=== PATIENT | male | born 1980 | race African-American/Black ===

== ENCOUNTER 2018-08-11 10:56 | Emergency (ER) | payer MEDICAID ==
[~2018-08-11] VITALS: Ht 188 cm; Wt 100.0 kg
[2018-08-11 10:59] VITALS: BP 135/83
== END 2018-08-11 12:23 | disposition home or self-care (01) ==
LOC: ER 10:57
DX: M79.671 Pain in right foot (principal); M79.672 Pain in left foot; Z59.0 Homelessness
CPT/HCPCS: 99283

== ENCOUNTER 2018-08-31 05:14 | Emergency (ER) | payer MEDICAID, OTHER ==
[~2018-08-31] VITALS: Ht 177.8 cm; Wt 84.1 kg
[2018-08-31 05:16] VITALS: BP 134/80
[2018-08-31] MEDS ORDERED: acetaminophen 325mg tablet PO ONE (05:25)
== END 2018-08-31 05:37 | disposition home or self-care (01) ==
LOC: ER 05:15
DX: S86.211A Strain of muscle(s) and tendon(s) of anterior muscle group at lower leg level, right leg, initial encounter (principal); X58.XXXA Exposure to other specified factors, initial encounter; Y93.89 Activity, other specified; Y92.89 Other specified places as the place of occurrence of the external cause; Y99.8 Other external cause status
CPT/HCPCS: 99282

== ENCOUNTER 2019-05-11 04:47 | Emergency (ER) | payer SELFPAY ==
[~2019-05-11] VITALS: Ht 177.8 cm; Wt 93.2 kg
[2019-05-11] MEDS ORDERED: LIDOcaine 1% w/EPI 1:200,000 injection 10mL vial IM ONE (06:15)
[2019-05-11] MEDS ORDERED: LIDOcaine 1% W/epiNEPHrine 1:100,000 20ml vial IJ ONE (06:20)
[2019-05-11 06:36] VITALS: BP 110/70
== END 2019-05-11 06:39 | disposition home or self-care (01) ==
LOC: ER 04:48
DX: M25.572 Pain in left ankle and joints of left foot (principal); Z59.0 Homelessness
CPT/HCPCS: 99282

== ENCOUNTER 2020-04-25 10:19 | Emergency (ER) | payer MEDICAID ==
[~2020-04-25] VITALS: Ht 177.8 cm; Wt 100.0 kg
[2020-04-25 10:50] VITALS: BP 106/68
== END 2020-04-25 11:07 | disposition home or self-care (01) ==
LOC: ER 10:19
DX: F15.10 Other stimulant abuse, uncomplicated (principal); F12.90 Cannabis use, unspecified, uncomplicated; Z59.0 Homelessness
CPT/HCPCS: 99281

== ENCOUNTER → 2020-05-16 | Emergency (ER) | payer MEDICAID ==
[~2020-05-16] VITALS: Ht 177.8 cm; Wt 95.4 kg
[~2020-05-16] MED LIST: acetaminophen 325mg tablet PO ONE
[2020-05-16 03:12] VITALS: BP 132/72
== END | disposition home or self-care (01) ==
LOC: ER 03:09
DX: F15.10 Other stimulant abuse, uncomplicated (principal); G47.00 Insomnia, unspecified; F12.90 Cannabis use, unspecified, uncomplicated; Z72.89 Other problems related to lifestyle; Z59.0 Homelessness
CPT/HCPCS: 99282

== ENCOUNTER 2020-05-25 00:08 | Emergency (ER) | payer MEDICAID ==
[~2020-05-25] VITALS: Ht 177.8 cm; Wt 97.7 kg
[2020-05-25 00:14] VITALS: BP 114/80
[2020-05-25] MEDS ORDERED: acetaminophen 325mg tablet PO ONE (01:25)
[2020-05-25] MEDS ORDERED: ibuprofen tablet 400 MG TABLET PO ONE (01:25)
[2020-05-25] MEDS ORDERED: metoclopramide 10mg tablet PO ONE (01:25)
== END 2020-05-25 02:03 | disposition home or self-care (01) ==
LOC: ER 00:08
DX: R51 Headache (principal); F12.90 Cannabis use, unspecified, uncomplicated; F15.90 Other stimulant use, unspecified, uncomplicated; Z72.89 Other problems related to lifestyle; Z59.0 Homelessness
CPT/HCPCS: 99284; J8597

== ENCOUNTER 2020-09-01 03:48 | Emergency (ER) | payer MEDICAID ==
[~2020-09-01] VITALS: Ht 177.8 cm; Wt 84.1 kg
[2020-09-01 03:52] VITALS: BP 136/92
[2020-09-01] MEDS ORDERED: ibuprofen tablet 400 MG TABLET PO ONE (04:05)
[2020-09-01] MEDS ORDERED: acetaminophen 325mg tablet PO ONE (04:05)
== END 2020-09-01 04:36 | disposition home or self-care (01) ==
LOC: ER 03:49
DX: S93.402A Sprain of unspecified ligament of left ankle, initial encounter (principal); M25.572 Pain in left ankle and joints of left foot; F15.10 Other stimulant abuse, uncomplicated; F12.90 Cannabis use, unspecified, uncomplicated; Z59.0 Homelessness; Z72.89 Other problems related to lifestyle; X58.XXXA Exposure to other specified factors, initial encounter; Y93.89 Activity, other specified; Y92.89 Other specified places as the place of occurrence of the external cause; Y99.8 Other external cause status
CPT/HCPCS: 29515; 73610; 73630; 99284

== ENCOUNTER → 2020-09-02 | Emergency (ER) | payer MEDICAID ==
[~2020-09-02] VITALS: Ht 177.8 cm; Wt 100.0 kg
[2020-09-02 03:20] VITALS: BP 118/59
== END | disposition home or self-care (01) ==
LOC: ER 03:19
DX: S93.402A Sprain of unspecified ligament of left ankle, initial encounter (principal); M25.572 Pain in left ankle and joints of left foot; F12.90 Cannabis use, unspecified, uncomplicated; F15.90 Other stimulant use, unspecified, uncomplicated; Z59.0 Homelessness; Z72.89 Other problems related to lifestyle; X58.XXXA Exposure to other specified factors, initial encounter; Y93.89 Activity, other specified; Y92.89 Other specified places as the place of occurrence of the external cause; Y99.8 Other external cause status
CPT/HCPCS: 99283

== ENCOUNTER 2020-09-03 03:02 | Emergency (ER) | payer MEDICAID ==
[~2020-09-03] VITALS: Ht 177.8 cm; Wt 96.4 kg
[2020-09-03 03:07] VITALS: BP 125/73
== END 2020-09-03 03:26 | disposition home or self-care (01) ==
LOC: ER 03:03
DX: M25.572 Pain in left ankle and joints of left foot (principal); F12.90 Cannabis use, unspecified, uncomplicated; F15.90 Other stimulant use, unspecified, uncomplicated; Z59.0 Homelessness; Z60.9 Problem related to social environment, unspecified; Z72.89 Other problems related to lifestyle
CPT/HCPCS: 99281

== ENCOUNTER 2020-09-07 05:22 | Emergency (ER) | payer MEDICAID ==
[~2020-09-07] VITALS: Ht 177.8 cm; Wt 100.0 kg
[2020-09-07 05:23] VITALS: BP 153/106
[2020-09-07] MEDS: diphenhydrAMINE 25mg capsule PO ONE (06:05)
== END 2020-09-07 06:08 | disposition home or self-care (01) ==
LOC: ER 05:23
DX: Z00.00 Encounter for general adult medical examination without abnormal findings (principal); R00.0 Tachycardia, unspecified; F41.9 Anxiety disorder, unspecified; F12.90 Cannabis use, unspecified, uncomplicated; F15.90 Other stimulant use, unspecified, uncomplicated; Z72.89 Other problems related to lifestyle; Z59.0 Homelessness; Z60.9 Problem related to social environment, unspecified
CPT/HCPCS: 99284; Q0163

== ENCOUNTER 2020-10-11 03:06 | Emergency (ER) | payer MEDICAID | END 2020-10-11 03:54 | disposition left against medical advice (07) | LOC: ER 03:06 | DX: M79.673 Pain in unspecified foot (principal); Z53.21 Procedure and treatment not carried out due to patient leaving prior to being seen by health care provider ==

== ENCOUNTER 2020-11-09 05:11 | Emergency (ER) | payer MEDICAID ==
[~2020-11-09] VITALS: Ht 177.8 cm; Wt 86.4 kg
[2020-11-09 05:12] VITALS: BP 125/58
== END 2020-11-09 06:11 | disposition home or self-care (01) ==
LOC: ER 05:12
DX: F15.90 Other stimulant use, unspecified, uncomplicated (principal); F12.90 Cannabis use, unspecified, uncomplicated; Z72.89 Other problems related to lifestyle; Z60.2 Problems related to living alone; Z59.0 Homelessness
CPT/HCPCS: 99283

== ENCOUNTER 2020-11-19 01:25 | Emergency (ER) | payer MEDICAID ==
[~2020-11-19] VITALS: Ht 177.8 cm; Wt 100.0 kg
[2020-11-19 01:36] VITALS: BP 134/83
--- NOTE | 2020-11-19 01:45 | NUR ---
Informed security of how uncomfortable the patient made me feel.
--- NOTE | 2020-11-19 02:37 | NUR ---
MD evaluated pt and RN deferred assessment
--- NOTE | 2020-11-19 02:37 | NUR ---
pt brought to triage so MD can see him.
== END 2020-11-19 02:58 | disposition home or self-care (01) ==
LOC: ER 01:25
DX: R19.7 Diarrhea, unspecified (principal); M25.551 Pain in right hip; M25.552 Pain in left hip; F31.9 Bipolar disorder, unspecified; F20.9 Schizophrenia, unspecified; F12.90 Cannabis use, unspecified, uncomplicated; F15.90 Other stimulant use, unspecified, uncomplicated; Z60.2 Problems related to living alone; Z59.0 Homelessness; Z72.89 Other problems related to lifestyle
CPT/HCPCS: 99281

== ENCOUNTER 2020-12-07 01:47 | Emergency (ER) | payer MEDICAID ==
[~2020-12-07] VITALS: Ht 177.8 cm; Wt 84.5 kg
[2020-12-07 01:50] VITALS: BP 124/76
== END 2020-12-07 03:45 | disposition home or self-care (01) ==
LOC: ER 01:48
DX: F15.129 Other stimulant abuse with intoxication, unspecified (principal); F29 Unspecified psychosis not due to a substance or known physiological condition; F31.9 Bipolar disorder, unspecified; F20.9 Schizophrenia, unspecified; F12.90 Cannabis use, unspecified, uncomplicated; Z72.89 Other problems related to lifestyle; Z60.2 Problems related to living alone; Z59.0 Homelessness
CPT/HCPCS: 99283

== ENCOUNTER 2021-01-04 01:38 | Emergency (ER) | payer MEDICAID | END 2021-01-04 02:05 | disposition left against medical advice (07) | LOC: ER 01:40 | DX: Z00.00 Encounter for general adult medical examination without abnormal findings (principal); Z53.21 Procedure and treatment not carried out due to patient leaving prior to being seen by health care provider ==

== ENCOUNTER 2023-06-27 00:03 | Emergency (ER) | payer MEDICAID ==
[~2023-06-27] VITALS: Ht 177.8 cm; Wt 89.0 kg
[2023-06-27] MEDS ORDERED: CEPH-585 PO (01:28)
--- NOTE | 2023-06-27 03:04 | NUR ---
Patient refusing to leave following discharge paperwork and education. Security paged.
[2023-06-27 03:05] VITALS: BP 130/78; PULSE 88; RESP 14; TEMP 97.9; O2SAT 99
== END 2023-06-27 03:06 | disposition home or self-care (01) ==
LOC: ER 00:04
DX: L03.115 Cellulitis of right lower limb (principal); L03.116 Cellulitis of left lower limb
CPT/HCPCS: 99283

== ENCOUNTER 2023-08-11 19:37 | Emergency (ER) | payer MEDICAID ==
[~2023-08-11] VITALS: Ht 177.8 cm; Wt 98.1 kg
[~2023-08-11 19:37] MED LIST changes: +CEPH-585 PO; -acetaminophen 325mg tablet PO ONE
[2023-08-11] MEDS ORDERED: acetaminophen 325mg tablet PO ONE (23:40)
[2023-08-12 00:07] VITALS: BP 122/88; PULSE 85; RESP 16; TEMP 98.7; O2SAT 98
== END 2023-08-12 00:09 | disposition home or self-care (01) ==
LOC: ER 19:39
DX: R51.9 Headache, unspecified (principal); F31.9 Bipolar disorder, unspecified; F20.9 Schizophrenia, unspecified; F12.10 Cannabis abuse, uncomplicated; F15.10 Other stimulant abuse, uncomplicated; Z79.899 Other long term (current) drug therapy; Z59.00 Homelessness unspecified
CPT/HCPCS: 99282

== ENCOUNTER 2023-08-18 03:27 | Emergency (ER) | payer MEDICAID ==
[~2023-08-18] VITALS: Ht 177.8 cm; Wt 94.4 kg
[2023-08-18] MEDS ORDERED: acetaminophen 325mg tablet PO ONE (04:10)
[2023-08-18] MEDS ORDERED: ibuprofen tablet 400 MG TABLET PO ONE (04:10)
[2023-08-18 04:20] VITALS: BP 120/74; PULSE 80; RESP 17; TEMP 98.9; O2SAT 99
== END 2023-08-18 04:22 | disposition home or self-care (01) ==
LOC: ER 03:28
DX: R51.9 Headache, unspecified (principal); F31.9 Bipolar disorder, unspecified; F20.9 Schizophrenia, unspecified; F12.10 Cannabis abuse, uncomplicated; F15.10 Other stimulant abuse, uncomplicated; Z79.899 Other long term (current) drug therapy
CPT/HCPCS: 99281; 99283

== ENCOUNTER 2025-08-19 12:22 | Emergency (ER) | payer MEDICAID ==
[~2025-08-19] VITALS: Ht 177.8 cm; Wt 107.1 kg
[2025-08-19] MEDS ORDERED: HYDR-3965 PO (13:15)
[2025-08-19] MEDS ORDERED: ANBESOL TP (13:15)
[2025-08-19] MEDS ORDERED: AMOX-117 PO (13:15)
--- NOTE | 2025-08-19 13:17 | Physician Documentation ---
HPI ~ General Chief Complaint: Tooth Problem Stated Complaint: TOOTH ACHE L SIDE Time Seen by MD: 12:32 OK to notify your PCP?: Yes Primary Medical Doctor: NONE Source: patient Mode of Arrival: POV Exam Limitations: no limitations History of Present Illness HPI Comment Reports left upper molar pain for the past 4 days. He reports that he has tried doing salt water gargles as well as taking Tylenol with little relief. He reports that the pain has been worsening over the past 2 days. He has not seen a dentist but knows that he needs to at some point. Fevers, trismus or drainage from the site Medication Reconciliation Allergies: Coded Allergies: No Known Allergies (Unverified , 08/18/23) Past Medical History Past Medical History: No Pertinent History, Bipolar, Schizophrenia Past Surgical History: no surgical history Alcohol Use: Occasionally Drug Use: marijuana, methamphetamine Lives with: Alone Lives In: Homeless Review of Systems All Other Systems at this time: Reviewed and Negative Physical Exam Vital Signs: RN Vital Signs have been reviewed: Yes, Heart Rate: 76, Respiratory Rate: 15, BP: 139/93, Pulse Oximetry: 100, Weight: 107.100 Pulse Oximetry Reflects: adequate oxygenation Physical Exam General: Alert, no distress. HEENT: No injection, moist mucous membranes. Midline, tonsils normal, uvula midline, pain to percussion of tooth #15 with erythema at the gumline, no drainage noted. No trismus Neck: Full range of motion. No cervical lymphadenopathy Respiratory: No respiratory distress, equal chest rise and fall. Lungs clear bilaterally Chest: No accessory muscle use. Cardiovascular: Regular rate and rhythm. Gastrointestinal: Nondistended. Extremities: Normal range of motion, no deformity. Neurologic: Oriented x4. Psychiatric: Normal mood and affect. Skin: Normal color, warm and dry. Progress Results/Orders Reviewed/noted all lab results: Yes Results/Orders Orders - BIA VASQUEZ PATIENT SCHEDULING COORDINATOR Amox Tr/Potassium Clavulanate (Augmentin (08/19/25 13:10) Hydrocodone/Apap 5/325mg Tab (Binger 5/32 (08/19/25 13:10) Vital Signs 08/19/25 12:26 Pulse 76 Resp 15 B/P (MAP) 139/93 Pulse Ox 100 Medical Decision Making Additional information obtaine: old records Findings Presents with what appears to be a dental abscess to the 15. Tooth. There is no obvious broken teeth or obvious dental caries to this tooth. The gumline is quite red and swollen. I have given this patient Binger for the pain, Augmentin for the infection as well as benzocaine gel which you can use as needed for the pain as well. First dose was given here in the department rest sent to the pharmacy. There was no trismus or signs of sepsis. Differential Dx:Considerations: Include: Facial Cellulitis, Tooth avulsion, Tooth eruption, Tooth Fracture Departure Disposition: 01 HOME / SELF CARE / HOMELESS Impression: Primary Impression: Dental abscess Condition: Stable Discharge Instructions: Dental Abscess Additional Instructions: Work to see a dentist within the next week as you likely need this tooth pulled. Take Tylenol and/or ibuprofen for pain relief and if that is not helping then you may take the Binger. Take care not to take more than 4000 mg of acetaminophen within a 24 hour period. Return back here for any new or worsening symptoms. Referrals: NO PRIMARY CARE PROVIDER (PCP) Prescriptions Hydrocodone Bit/Acetaminophen 5/325 MG (Binger 5/325 MG) 5 Mg/325 Mg Tablet 1 TAB PO TID PRN PRN for pain for 5 Days, #15 TAB Prov: BIA VASQUEZP 08/19/25 Benzocaine* (Anbesol*) 12 Ml Bottle 1 APPLIC TP Q2H for 3 Days, #1 EACH Prov: BIA VASQUEZP 08/19/25 Amox Tr/Potassium Clavulanate (Augmentin 875-125 Tablet) 1 Each Tablet 1 TAB PO Q12H for 10 Days, #20 TAB Prov: BIA VASQUEZP 08/19/25 Education Educated: Patient Educated regarding: diagnosis, treatment, prognosis, need for follow up Additional Comment Medical Screen Exam This patient recieved a medical screening examination. After reviewing the individual's medical complaints with presenting symptoms and performing an appropriate physical examination, it was determined that no immediate life- threatening emergency medical condition is present. This individual is also not a women having contractions. Signature Scribe Signature: . Attestation: Scribed for Bia Vasquezp by Bia Lawson NP . 08/19/25 13:18 Parts of this note were created using [employer] voice recognition software program. While efforts were made to correct any mistakes made by this voice recognition software program, nonsensical phrases may remain in this note. In addition, there may be errors and syntax, grammar, content and spelling. BIA VASQUEZ [facility] Aug 19, 2025 13:17
[2025-08-19] MEDS: amox tr/potassium clavulanate 875/125mg TAB PO ONE (13:24)
[2025-08-19] MEDS: HYDROcodone/acetaminophen 5mg/325mg tablet PO ONE (13:25)
[2025-08-19 13:31] VITALS: BP 138/78; PULSE 75; RESP 18; TEMP 98.4; O2SAT 99
== END 2025-08-19 13:40 | disposition home or self-care (01) ==
LOC: ER 12:24
DX: K04.7 Periapical abscess without sinus (principal); F31.9 Bipolar disorder, unspecified; F20.9 Schizophrenia, unspecified; F12.90 Cannabis use, unspecified, uncomplicated; F15.90 Other stimulant use, unspecified, uncomplicated; Z59.00 Homelessness unspecified; Z72.89 Other problems related to lifestyle; Z60.2 Problems related to living alone
CPT/HCPCS: 99283